=== PATIENT | female | born 1965 | race Caucasian/White ===

== ENCOUNTER → 2016-07-15 | Outpatient (REF) | payer OTHER ==
[~2016-07-15] MED LIST: CLARITIN D PO; IBUP400T OR; LEVO25TA2 OR; MULTIVIT PO; VICO5TAB OR
== END | disposition home or self-care (01) ==
LOC: M LAB REF 12:23
PROVIDERS: ATTEND Physician Assistant Medical
DX: N30.01 Acute cystitis with hematuria (principal)

== ENCOUNTER → 2016-12-24 | Outpatient (REF) | payer OTHER | LOC: M LAB REF 21:23 | PROVIDERS: ATTEND Physician Assistant | DX: N39.0 Urinary tract infection, site not specified (principal) ==

== ENCOUNTER → 2017-02-19 | Outpatient (CLI) | payer OTHER ==
--- NOTE | 2017-02-19 17:11 | REPMRS ---
Patient History The patient states she had a clinical breast exam in 01/2017. No known family history of cancer. Reconstructions of both breasts, December 2013. Taking estrogen for 4 years 6 months. Taking progesterone for 4 years 6 months. Digital Woman Screen Mammo: February 19, 2017 - Exam #: [id number] Bilateral CC and MLO view(s) were taken. Technologist: Lupe Minor, Technologist Prior study comparison: January 10, 2016, digital woman screen mammo performed at [facility]. December 12, 2014, digital woman screen mammo performed at [facility] to [facility]. FINDINGS: There are scattered fibroglandular densities. There has been no change in the appearance of the mammogram from the prior studies. There is a mild amount of residual fibroglandular tissue which is fairly symmetric. There is no interval development of dominant mass, architectural distortion, or clustered microcalcification suggestive of malignancy. ASSESSMENT: BI-RADS/ACR category 1 mammogram. Negative. Recommendation Routine screening mammogram in 1 year (for women over age 40). This mammogram was interpreted with the aid of an FDA-approved computer-aided dectection system. Electronically Signed By: Eddie Robin MD 02/19/17 [id number]
== END ==
LOC: M WHC 15:18
PROVIDERS: ATTEND Nurse Practitioner Family
DX: Z12.31 Encounter for screening mammogram for malignant neoplasm of breast (principal)

== ENCOUNTER → 2017-05-06 | Outpatient (REF) | payer OTHER ==
[2017-05-06 13:38] LABS: ANION GAP 6 MEQ/L (8-16); BLOOD UREA NITROGEN 14 MG/DL (7-18); CALCIUM LEVEL 9.4 MG/DL (8.5-10.1); CARBON DIOXIDE LEVEL 33 MEQ/L (21-32); CHLORIDE LEVEL 101 MEQ/L (98-107); CHOLESTEROL LEVEL 262 MG/DL (<200); CREATININE FOR GFR 0.87 MG/DL (0.55-1.02); GLOMERULAR FILTRATION RATE > 60.0 (>51); GLUCOSE, FASTING 91 MG/DL (70-105); POTASSIUM SERUM 4.9 MEQ/L (3.5-5.1); SODIUM LEVEL 140 MEQ/L (136-145); TRIGLYCERIDES LEVEL 231 MG/DL (<150)
== END ==
LOC: M LABDRWAD 12:16 → M LAB REF 12:16
PROVIDERS: ATTEND Internal Medicine
DX: Z00.01 Encounter for general adult medical examination with abnormal findings (principal); E78.00 Pure hypercholesterolemia, unspecified

== ENCOUNTER → 2017-07-07 | Outpatient (REF) | payer OTHER | LOC: M LAB REF 18:58 | DX: N30.01 Acute cystitis with hematuria (principal) ==

== ENCOUNTER → 2017-08-08 | Outpatient (REF) | payer OTHER | LOC: M LAB REF 17:17 | DX: N30.01 Acute cystitis with hematuria (principal) ==

== ENCOUNTER 2017-08-10 07:53 | Day surgery (SDC) | payer OTHER ==
[~2017-08-10 07:53] MED LIST changes: -CLARITIN D PO; -IBUP400T OR; -LEVO25TA2 OR; +LIDOCAINE 2% INJ 100 MG/5 ML SDV (FOR ANES.) As Ordered; -MULTIVIT PO; +PROPOFOL 200 MG/20 ML VIAL As Ordered; -VICO5TAB OR
[2017-08-10] MEDS: NS 1,000 ML IV (08:15)
== END 2017-08-10 10:20 | disposition home or self-care (01) ==
LOC: M OPP 07:53
DX: Z12.11 Encounter for screening for malignant neoplasm of colon (principal); K64.0 First degree hemorrhoids; R12 Heartburn; R13.10 Dysphagia, unspecified; K22.8 Other specified diseases of esophagus; K44.9 Diaphragmatic hernia without obstruction or gangrene; E03.9 Hypothyroidism, unspecified; K21.9 Gastro-esophageal reflux disease without esophagitis; R06.83 Snoring; Z79.899 Other long term (current) drug therapy
CPT/HCPCS: 45378

== ENCOUNTER → 2017-10-20 | Outpatient (REF) | payer OTHER | LOC: M LAB REF 12:41 | DX: N30.01 Acute cystitis with hematuria (principal) | CPT/HCPCS: 87186 ==

== ENCOUNTER → 2017-12-04 | Outpatient (REF) | payer OTHER | LOC: M LAB REF 12-08 12:34 | DX: N30.01 Acute cystitis with hematuria (principal) ==

== ENCOUNTER → 2018-05-07 | Outpatient (CLI) | payer OTHER ==
[2018-05-07 14:20] LABS: ANION GAP 7 MEQ/L (8-16); BLOOD UREA NITROGEN 17 MG/DL (7-18); CALCIUM LEVEL 8.8 MG/DL (8.5-10.1); CARBON DIOXIDE LEVEL 30 MEQ/L (21-32); CHLORIDE LEVEL 103 MEQ/L (98-107); CHOLESTEROL LEVEL 280 MG/DL (<200); CHOLESTEROL RISK RATIO 4.827 (<5); CREATININE FOR GFR 0.84 MG/DL (0.55-1.30); GLOMERULAR FILTRATION RATE > 60.0 (>51); GLUCOSE, FASTING 93 MG/DL (70-100); HDL CHOLESTEROL 58 MG/DL (>40); LDL CHOLESTEROL 174 MG/DL (<100); NON-HDL-C 222 MG/DL; POTASSIUM SERUM 4.4 MEQ/L (3.5-5.1); SODIUM LEVEL 140 MEQ/L (136-145); TRIGLYCERIDES LEVEL 239 MG/DL (<150)
== END ==
LOC: M ADAMS 09:45
DX: E78.00 Pure hypercholesterolemia, unspecified (principal); E03.9 Hypothyroidism, unspecified
CPT/HCPCS: 84443

== ENCOUNTER → 2018-05-18 | Outpatient (CLI) | payer OTHER ==
[~2018-05-18] MED LIST changes: +CLARITIN D PO; +ESOM1CAP5 PO; +ESTE1TAB5 PO; +IBUP400T OR; +LEVO25TA2 OR; +LEVO75TA4 PO; -LIDOCAINE 2% INJ 100 MG/5 ML SDV (FOR ANES.) As Ordered; +MULT1TAB10 PO; +MULTIVIT PO; -PROPOFOL 200 MG/20 ML VIAL As Ordered; +VICO5TAB OR
--- NOTE | 2018-05-18 10:29 | REPMRS ---
Patient History The patient states she had a clinical breast exam in 05/18 No known family history of cancer. Reconstructions of both breasts, December 2013. Taking estrogen for 5 years 6 months. Taking progesterone for 5 years 6 months. Digital Woman Screen Mammo: May 18, 2018 - Exam #: [id number] Bilateral CC and MLO view(s) were taken. Technologist: Aviva Cowart, Technologist Prior study comparison: February 19, 2017, digital woman screen mammo performed at [facility]. January 10, 2016, digital woman screen mammo performed at [facility]. December 12, 2014, digital woman screen mammo performed at [facility] to [facility]. FINDINGS: There are scattered fibroglandular densities. There is a moderate amount of residual fibroglandular tissue which is fairly symmetric. There is no interval development of dominant mass, architectural distortion, or clustered microcalcification typical of malignancy. There has been no change in the appearance of the mammogram from the prior studies. 3-D tomosynthesis shows no additional findings. Assessment: BI-RADS/ACR category 1 mammogram. Negative. Recommendation Routine screening mammogram of both breasts in 1 year (for women over age 40). This patient's Lifetime Breast Cancer RIsk is estimated at 7.5 %. This mammogram was interpreted with the aid of an FDA-approved computer-aided dectection system. Electronically Signed By: Kris Tubbs MD 05/18/18 [id number]
== END ==
LOC: M WHC 08:19
PROVIDERS: ATTEND Nurse Practitioner Family
DX: Z12.31 Encounter for screening mammogram for malignant neoplasm of breast (principal); Z92.23 Personal history of estrogen therapy; Z92.29 Personal history of other drug therapy; Z92.89 Personal history of other medical treatment

== ENCOUNTER → 2018-11-08 | Outpatient (REF) | payer OTHER ==
[2018-11-08 14:28] LABS: CHOLESTEROL RISK RATIO 2.822 (<5); THYROID STIMULATING HORMONE 0.605 uIU/ML (0.358-3.740)
== END ==
LOC: M LABDRWAD 12:25
PROVIDERS: ATTEND Nurse Practitioner Family
DX: E78.00 Pure hypercholesterolemia, unspecified (principal); K03.9 Disease of hard tissues of teeth, unspecified

== ENCOUNTER → 2019-02-25 | Outpatient (REF) | payer OTHER ==
[2019-02-25 17:02] LABS: BLOOD UREA NITROGEN 13 MG/DL (7-18); CALCIUM LEVEL 8.9 MG/DL (8.5-10.1); CARBON DIOXIDE LEVEL 29 MEQ/L (21-32); CHLORIDE LEVEL 106 MEQ/L (98-107); CHOLESTEROL LEVEL 249 MG/DL (<200); CREATININE FOR GFR 0.86 MG/DL (0.55-1.30); GLOMERULAR FILTRATION RATE > 60.0 (>51); GLUCOSE, FASTING 93 MG/DL (70-100); HDL CHOLESTEROL 73 MG/DL (>40); LDL CHOLESTEROL 156 MG/DL (<100); NON-HDL-C 176 MG/DL; POTASSIUM SERUM 4.9 MEQ/L (3.5-5.1); SODIUM LEVEL 141 MEQ/L (136-145); TRIGLYCERIDES LEVEL 98 MG/DL (<150)
== END ==
LOC: M LABDRWAD 12:51
PROVIDERS: ATTEND Internal Medicine
DX: Z00.00 Encounter for general adult medical examination without abnormal findings (principal); E78.00 Pure hypercholesterolemia, unspecified; E03.9 Hypothyroidism, unspecified

== ENCOUNTER → 2019-05-05 | Outpatient (REF) | payer OTHER ==
[2019-05-05 12:33] LABS: BLOOD UREA NITROGEN 15 MG/DL (7-18); CARBON DIOXIDE LEVEL 31 MEQ/L (21-32); CHLORIDE LEVEL 103 MEQ/L (98-107); GLOMERULAR FILTRATION RATE > 60.0 (>51); GLUCOSE, FASTING 88 MG/DL (70-100); POTASSIUM SERUM 4.6 MEQ/L (3.5-5.1); SODIUM LEVEL 141 MEQ/L (136-145)
[2019-05-05 12:34] LABS: CHOLESTEROL LEVEL 289 MG/DL (<200); CHOLESTEROL RISK RATIO 3.284 (<5); HDL CHOLESTEROL 88 MG/DL (>40); LDL CHOLESTEROL 178 MG/DL (<100); NON-HDL-C 201 MG/DL; TRIGLYCERIDES LEVEL 115 MG/DL (<150)
== END ==
LOC: M LABDRWAD 11:33
PROVIDERS: ATTEND Internal Medicine
DX: Z00.00 Encounter for general adult medical examination without abnormal findings (principal); E78.00 Pure hypercholesterolemia, unspecified; E03.9 Hypothyroidism, unspecified

== ENCOUNTER → 2019-05-19 | Outpatient (CLI) | payer OTHER ==
--- NOTE | 2019-05-19 09:29 | REPMRS ---
Patient History The patient states she had a clinical breast exam in 2018. No known family history of cancer. Reconstructions of both breasts, December 2013. Taking estrogen for 9 years. Took progesterone for 5 years 6 months. Digital Woman Screen Mammo: May 19, 2019 - Exam #: [id number] Bilateral CC and MLO view(s) were taken. Technologist: Denae Arzate, Technologist Prior study comparison: May 18, 2018, bilateral digital woman screen mammo performed at [facility]. February 19, 2017, digital woman screen mammo performed at [facility]. January 10, 2016, digital woman screen mammo performed at [facility]. FINDINGS: The breast tissue is heterogeneously dense. This may lower the sensitivity of mammography. There is a moderate amount of heterogeneously dense fibroglandular tissue which is fairly symmetric. There is no interval development of dominant mass, architectural distortion, or grouped microcalcification typical of malignancy. There has been no change in the appearance of the mammogram from the prior studies. 3-D tomosynthesis shows no additional findings. Assessment: BI-RADS/ACR category 1 mammogram. Negative Mammogram. Recommendation Routine screening mammogram of both breasts in 1 year (for women over age 40). This patient's Lifetime Breast Cancer RIsk is estimated at 7.4 %. This mammogram was interpreted with the aid of an FDA-approved computer-aided dectection system. Electronically Signed By: Kris Tubbs MD 05/19/19 [id number]
== END ==
LOC: M WHC 08:02
PROVIDERS: ATTEND Nurse Practitioner Family
DX: Z12.31 Encounter for screening mammogram for malignant neoplasm of breast (principal)

== ENCOUNTER → 2019-08-01 | Outpatient (REF) | payer OTHER ==
[2019-08-01 14:29] LABS: ALBUMIN 4.1 GM/DL (3.2-5.2); ALT/SGPT 41 U/L (12-78); BILIRUBIN,TOTAL 0.5 MG/DL (0.2-1.0); BLOOD UREA NITROGEN 11 MG/DL (7-18); CALCIUM LEVEL 9.1 MG/DL (8.5-10.1); CARBON DIOXIDE LEVEL 31 MEQ/L (21-32); CHLORIDE LEVEL 103 MEQ/L (98-107); CHOLESTEROL LEVEL 232 MG/DL (<200); CHOLESTEROL RISK RATIO 3.314 (<5); GLOMERULAR FILTRATION RATE > 60.0 (>51); GLUCOSE, FASTING 88 MG/DL (70-100); HDL CHOLESTEROL 70 MG/DL (>40); LDL CHOLESTEROL 119 MG/DL (<100); NON-HDL-C 162 MG/DL; POTASSIUM SERUM 4.6 MEQ/L (3.5-5.1); SODIUM LEVEL 139 MEQ/L (136-145); TOTAL PROTEIN 7.6 GM/DL (6.4-8.2); TRIGLYCERIDES LEVEL 213 MG/DL (<150)
== END ==
LOC: M LAB REF 12:54
PROVIDERS: ATTEND Internal Medicine
DX: Z00.00 Encounter for general adult medical examination without abnormal findings (principal); E78.00 Pure hypercholesterolemia, unspecified

== ENCOUNTER → 2019-11-10 | Outpatient (REF) | payer OTHER ==
[2019-11-10 14:00] LABS: BLOOD UREA NITROGEN 15 MG/DL (7-18); CREATININE FOR GFR 0.83 MG/DL (0.55-1.30); GLUCOSE, FASTING 86 MG/DL (70-100)
[2019-11-10 14:01] LABS: ALBUMIN 3.7 GM/DL (3.2-5.2); ALT/SGPT 42 U/L (12-78); BILIRUBIN,TOTAL 0.4 MG/DL (0.2-1.0); CALCIUM LEVEL 8.3 MG/DL (8.5-10.1); CARBON DIOXIDE LEVEL 30 MEQ/L (21-32); CHLORIDE LEVEL 108 MEQ/L (98-107); CHOLESTEROL LEVEL 174 MG/DL (<200); CHOLESTEROL RISK RATIO 2.259 (<5); GLOMERULAR FILTRATION RATE > 60.0 (>51); HDL CHOLESTEROL 77 MG/DL (>40); LDL CHOLESTEROL 81 MG/DL (<100); NON-HDL-C 97 MG/DL; POTASSIUM SERUM 4.7 MEQ/L (3.5-5.1); SODIUM LEVEL 142 MEQ/L (136-145); TOTAL PROTEIN 6.9 GM/DL (6.4-8.2); TRIGLYCERIDES LEVEL 79 MG/DL (<150)
[2019-11-11 11:58] LABS: TOTAL 25(OH) VITAMIN D 32.5 NG/ML (30.0-100.0)
== END ==
LOC: M LABDRWAD 12:52
PROVIDERS: ATTEND Nurse Practitioner Family
DX: Z00.00 Encounter for general adult medical examination without abnormal findings (principal); E78.00 Pure hypercholesterolemia, unspecified; E83.51 Hypocalcemia

== ENCOUNTER → 2020-05-16 | Outpatient (REF) | payer OTHER ==
[2020-05-16 13:46] LABS: ALBUMIN 3.7 GM/DL (3.2-5.2); ALT/SGPT 35 U/L (12-78); BILIRUBIN,TOTAL 0.4 MG/DL (0.2-1.0); BLOOD UREA NITROGEN 16 MG/DL (7-18); CALCIUM LEVEL 8.3 MG/DL (8.5-10.1); CARBON DIOXIDE LEVEL 30 MEQ/L (21-32); CHLORIDE LEVEL 103 MEQ/L (98-107); CHOLESTEROL LEVEL 195 MG/DL (<200); CREATININE FOR GFR 0.86 MG/DL (0.55-1.30); GLOMERULAR FILTRATION RATE > 60.0 (>51); GLUCOSE, FASTING 95 MG/DL (70-100); HDL CHOLESTEROL 78 MG/DL (>40); LDL CHOLESTEROL 97 MG/DL (<100); NON-HDL-C 117 MG/DL; POTASSIUM SERUM 4.8 MEQ/L (3.5-5.1); SODIUM LEVEL 140 MEQ/L (136-145); THYROID STIMULATING HORMONE 0.882 uIU/ML (0.358-3.740); TOTAL 25(OH) VITAMIN D 31.2 NG/ML (30.0-100.0); TRIGLYCERIDES LEVEL 99 MG/DL (<150)
== END ==
LOC: M LAB REF 12:22 → M LABDRWAD 12:22
PROVIDERS: ATTEND Internal Medicine
DX: E78.00 Pure hypercholesterolemia, unspecified (principal); E03.9 Hypothyroidism, unspecified; E83.51 Hypocalcemia

== ENCOUNTER → 2020-06-06 | Outpatient (CLI) | payer OTHER ==
--- NOTE | 2020-06-06 16:00 | REPMRS ---
Patient History The patient states she had a clinical breast exam in June.No known family history of cancer. Reconstructions of both breasts, December 2013. Taking estrogen for 9 years. Took progesterone for 5 years 6 months. 3D TOMOSYNTHESIS WAS PERFORMED. [facility] Volpara breast density b. Digital Woman Screen Mammo: June 06, 2020 - Exam #: [id number] Bilateral CC and MLO view(s) were taken. Technologist: Amarilys Rodriguez, Technologist Prior study comparison: May 19, 2019, bilateral digital woman screen mammo performed at [facility]. May 18, 2018, bilateral digital woman screen mammo performed at [facility]. FINDINGS: There are scattered fibroglandular densities. There has been no change in the appearance of the mammogram from the prior studies. There is a mild amount of residual fibroglandular tissue which is fairly symmetric. There is no interval development of dominant mass, architectural distortion, or clustered microcalcification suggestive of malignancy. Assessment: BI-RADS/ACR category 1 mammogram. Negative Mammogram. Recommendation Routine screening mammogram in 1 year (for women over age 40). This mammogram was interpreted with the aid of an FDA-approved computer-aided dectection system. Electronically Signed By: Eddie Robin MD 06/06/20 [id number]
== END ==
LOC: M WHC 15:29
PROVIDERS: ATTEND Nurse Practitioner Family
DX: Z12.31 Encounter for screening mammogram for malignant neoplasm of breast (principal)

== ENCOUNTER → 2020-11-20 | Outpatient (REF) | payer OTHER ==
[2020-11-20 12:53] LABS: HEMATOCRIT 43.9 % (36.0-47.0); HEMOGLOBIN 14.4 g/dl (12.0-15.5); MEAN CORPUSCULAR HEMOGLOBIN 31.3 pg (27.0-33.0); MEAN CORPUSCULAR HGB CONC 32.8 g/dl (32.0-36.5); MEAN CORPUSCULAR VOLUME 95.4 fl (80.0-96.0); PLATELET COUNT, AUTOMATED 216 10^3/uL (150-450); WHITE BLOOD COUNT 7.4 10^3/uL (4.0-10.0)
[2020-11-20 13:23] LABS: CHOLESTEROL RISK RATIO 2.224 (<5); THYROID STIMULATING HORMONE 1.58 uIU/ML (0.358-3.740)
[2020-11-20 13:35] LABS: ATYPICAL LYMPH 8 % (0-5); EOSINOPHILS 1 % (0-3); LYMPHOCYTES 28 % (16-44); MONOCYTES 4 % (0-5); NEUTROPHILS 59 % (28-66)
[2020-11-20 13:36] LABS: PLATELET ESTIMATE NORMAL (NORMAL)
== END ==
LOC: M LAB REF 12:17 → M LABDRWAD 12:17
PROVIDERS: ATTEND Internal Medicine
DX: Z00.00 Encounter for general adult medical examination without abnormal findings (principal); E03.9 Hypothyroidism, unspecified; E78.00 Pure hypercholesterolemia, unspecified

== ENCOUNTER → 2021-07-10 | Outpatient (CLI) | payer OTHER | LOC: M WHC 16:27 | PROVIDERS: ATTEND Obstetrics & Gynecology | DX: Z53.9 Procedure and treatment not carried out, unspecified reason (principal) ==

== ENCOUNTER → 2021-07-10 | Outpatient (CLI) | payer OTHER | LOC: M WHC 14:38 | PROVIDERS: ATTEND Obstetrics & Gynecology | DX: Z12.31 Encounter for screening mammogram for malignant neoplasm of breast (principal) ==

== ENCOUNTER → 2022-04-09 | Outpatient (CLI) | payer OTHER | LOC: M PLALAB 11:08 | PROVIDERS: ATTEND Physician Assistant | DX: M25.532 Pain in left wrist (principal) ==

== ENCOUNTER → 2022-05-09 | Outpatient (REF) | payer OTHER ==
[2022-05-09 13:35] LABS: C REACTIVE PROTEIN QUANTITATIV 0.8 MG/DL (<1.0)
[2022-05-09 13:36] LABS: RHEUMATOID FACTOR QUANT 5.5 IU/ML (<14)
[2022-05-10 13:08] LABS: ANTINUCLEAR ANTIBODIES DIRECT Negative (Negative)
== END ==
LOC: M LAB REF 12:19
PROVIDERS: ATTEND Registered Nurse
DX: M25.532 Pain in left wrist (principal)

== ENCOUNTER → 2022-08-04 | Outpatient (CLI) | payer OTHER | LOC: M WHC 11:21 | PROVIDERS: ATTEND Obstetrics & Gynecology | DX: Z12.31 Encounter for screening mammogram for malignant neoplasm of breast (principal) ==

== ENCOUNTER 2022-10-02 09:11 | Emergency (ER) | payer OTHER ==
[~2022-10-02] VITALS: Ht 162.6 cm; Wt 74.2 kg
[2022-10-02] MEDS ORDERED: ESTR0.1C5 (09:19)
[2022-10-02] MEDS ORDERED: ATOR1TAB19 PO (09:19)
[2022-10-02 10:35] LABS: BASO # 0.1 10^3/uL (0.0-0.2); BASO % 0.4 % (0.0-1.0); EOS # 0.1 10^3/uL (0.0-0.5); EOS % 0.4 % (0.0-3.0); HEMATOCRIT 43.5 % (36.0-47.0); LYMPH # 1.1 10^3/uL (1.5-5.0); LYMPH % 6.7 % (24.0-44.0); MEAN CORPUSCULAR HEMOGLOBIN 30.7 pg (27.0-33.0); MEAN CORPUSCULAR HGB CONC 34.5 g/dl (32.0-36.5); MONO % 9.4 % (2.0-8.0); NEUTROPHILS # 13.6 10^3/uL (1.5-8.5); NEUTROPHILS % 82.7 % (36.0-66.0); PLATELET COUNT, AUTOMATED 264 10^3/uL (150-450); RED BLOOD COUNT 4.89 10^6/uL (4.00-5.40); WHITE BLOOD COUNT 16.5 10^3/uL (4.0-10.0)
[2022-10-02 10:57] LABS: LIPASE 23 U/L (12-53)
[2022-10-02 10:59] LABS: ALBUMIN 3.7 G/DL (3.2-5.2); ALKALINE PHOSPHATASE 185 U/L (46-116); ALT/SGPT 38 U/L (7.0-40); AST/SGOT 33 U/L (<34); BILIRUBIN,DIRECT 0.2 MG/DL (<0.4); BILIRUBIN,TOTAL 0.6 MG/DL (0.3-1.2); BLOOD UREA NITROGEN 14 MG/DL (9-23); CALCIUM LEVEL 9.6 MG/DL (8.5-10.1); CARBON DIOXIDE LEVEL 30 MMOL/L (20-31); CHLORIDE LEVEL 95 MMOL/L (98-107); CREATININE FOR GFR 0.79 MG/DL (0.55-1.30); GLOMERULAR FILTRATION RATE > 60.0 (>51); GLUCOSE, FASTING 110 MG/DL (60-100); POTASSIUM SERUM 4.6 MMOL/L (3.5-5.1); SODIUM LEVEL 135 MMOL/L (136-145); TOTAL PROTEIN 7.3 G/DL (5.7-8.2)
[2022-10-02] MEDS ORDERED: NS 1,000 ML IV ONE (11:05)
[2022-10-02] MEDS ORDERED: MORPHINE 2 MG/ML 1ML VIAL IV ONE (11:05)
[2022-10-02] MEDS ORDERED: ONDANSETRON 4MG 2ML VIAL IV ONE (11:05)
[2022-10-02 11:19] LABS: MONO # 1.6 10^3/uL (0.0-0.8)
[2022-10-02 12:15] LABS: APPEARANCE, URINE HAZY (CLEAR); BACTERIA, URINE AUTO 1+ (NEGATIVE); BILIRUBIN, URINE AUTO NEGATIVE (NEGATIVE); BLOOD, URINE BLOOD 1+ (NEGATIVE); COLOR, URINE AMBER (YELLOW); GLUCOSE, URINE (UA) AUTO NEGATIVE (NEGATIVE); KETONE, URINE AUTO 2+ mg/dL (NEGATIVE); LEUKOCYTE ESTERASE, URINE AUTO NEGATIVE (NEGATIVE); MUCUS, URINE SMALL (NEGATIVE); NITRITE, URINE AUTO NEGATIVE (NEGATIVE); PROTEIN, URINE AUTO 2+ mg/dL (NEGATIVE); RBC, URINE AUTO 52 /HPF (0-3); SQUAMOUS EPITHELIAL CELL UR AU 0 /HPF (0-6); WBC, URINE AUTO 1 /HPF (0-3)
[2022-10-02] MEDS ORDERED: KETOROLAC 30 MG/ML 1ML VIAL IV ONE (12:40)
[2022-10-02] MEDS ORDERED: PIPERACILLIN/TAZOBACTAM SOD 3.375 GM in D5W MINI-BAG PLUS 50 ML IV ONE (12:50)
[2022-10-02 13:41] VITALS: BP 153/72
[2022-10-02 14:29] LABS: RSV AMPLIFICATION NEGATIVE (NEGATIVE)
[2022-10-02] MEDS ORDERED: ONDA4TAB6 PO (14:47)
[2022-10-02] MEDS ORDERED: AMOX875T2 PO (14:47)
[2022-10-02] MEDS ORDERED: KETO10TAB PO (14:47)
[2022-10-03] MEDS ORDERED: AMOX875T2 PO (21:01)
[2022-10-03] MEDS ORDERED: KETO10TAB PO (21:01)
[2022-10-03] MEDS ORDERED: ONDA4TAB6 PO (21:01)
== END 2022-10-02 15:07 | disposition home or self-care (01) ==
LOC: M ED 09:11
DX: K80.20 Calculus of gallbladder without cholecystitis without obstruction (principal); E03.9 Hypothyroidism, unspecified; K21.9 Gastro-esophageal reflux disease without esophagitis; F10.10 Alcohol abuse, uncomplicated; Z79.2 Long term (current) use of antibiotics; Z79.810 Long term (current) use of selective estrogen receptor modulators (SERMs); Z79.02 Long term (current) use of antithrombotics/antiplatelets; Z79.899 Other long term (current) drug therapy
CPT/HCPCS: 76705; 80048; 80076; 81001; 83690; 85025; 87631; 96365; 96375; 99284; J1885; J2405; J2543

== ENCOUNTER 2022-10-03 18:44 | Emergency (ER) | payer OTHER ==
[~2022-10-03] VITALS: Ht 162.6 cm; Wt 75.1 kg
[~2022-10-03 18:44] MED LIST changes: +AMOX875T2 PO; +ATOR1TAB19 PO; +ESTR0.1C5; +KETO10TAB PO; +ONDA4TAB6 PO
[2022-10-03] MEDS ORDERED: NS 500 ML IV ONE (20:15)
[2022-10-03] MEDS ORDERED: MORPHINE 4 MG/ML 1ML VIAL IV ONE (20:30)
[2022-10-03] MEDS ORDERED: NS 1,000 ML IV ONE (20:30)
[2022-10-03 20:41] LABS: BASO # 0.1 10^3/uL (0.0-0.2); BASO % 0.3 % (0.0-1.0); EOS # 0.1 10^3/uL (0.0-0.5); EOS % 0.5 % (0.0-3.0); HEMATOCRIT 38.1 % (36.0-47.0); HEMOGLOBIN 13.1 g/dl (12.0-15.5); LYMPH # 1.1 10^3/uL (1.5-5.0); LYMPH % 5.5 % (24.0-44.0); MEAN CORPUSCULAR HEMOGLOBIN 30.4 pg (27.0-33.0); MEAN CORPUSCULAR HGB CONC 34.4 g/dl (32.0-36.5); MEAN CORPUSCULAR VOLUME 88.4 fl (80.0-96.0); MONO % 11.7 % (2.0-8.0); NEUTROPHILS # 16.1 10^3/uL (1.5-8.5); NEUTROPHILS % 81.4 % (36.0-66.0); PLATELET COUNT, AUTOMATED 258 10^3/uL (150-450); RED BLOOD COUNT 4.31 10^6/uL (4.00-5.40); WHITE BLOOD COUNT 19.7 10^3/uL (4.0-10.0)
[2022-10-03 20:44] LABS: APPEARANCE, URINE HAZY (CLEAR); BACTERIA, URINE AUTO NEGATIVE (NEGATIVE); BILIRUBIN, URINE AUTO 1+ (NEGATIVE); BLOOD, URINE BLOOD 2+ (NEGATIVE); COLOR, URINE AMBER (YELLOW); GLUCOSE, URINE (UA) AUTO NEGATIVE (NEGATIVE); KETONE, URINE AUTO 1+ mg/dL (NEGATIVE); LEUKOCYTE ESTERASE, URINE AUTO NEGATIVE (NEGATIVE); MUCUS, URINE SMALL (NEGATIVE); NITRITE, URINE AUTO NEGATIVE (NEGATIVE); PROTEIN, URINE AUTO 2+ mg/dL (NEGATIVE); RBC, URINE AUTO 62 /HPF (0-3); SPECIFIC GRAVITY URINE AUTO 1.026 (1.002-1.035); SQUAMOUS EPITHELIAL CELL UR AU 0 /HPF (0-6); WBC, URINE AUTO 2 /HPF (0-3)
[2022-10-03] MEDS ORDERED: ONDA4TAB6 PO (21:01)
[2022-10-03] MEDS ORDERED: KETO10TAB PO (21:01)
[2022-10-03] MEDS ORDERED: AMOX875T2 PO (21:01)
[2022-10-03 21:04] LABS: LIPASE 24 U/L (12-53)
[2022-10-03] MEDS ORDERED: HOME MED LIST COMPLETE! XX SCH (21:05)
[2022-10-03 21:08] LABS: ALBUMIN 2.9 G/DL (3.2-5.2); ALKALINE PHOSPHATASE 339 U/L (46-116); ALT/SGPT 131 U/L (7.0-40); AST/SGOT 130 U/L (<34); BILIRUBIN,DIRECT 1.2 MG/DL (<0.4); BILIRUBIN,TOTAL 1.9 MG/DL (0.3-1.2); BLOOD UREA NITROGEN 16 MG/DL (9-23); CALCIUM LEVEL 8.8 MG/DL (8.5-10.1); CARBON DIOXIDE LEVEL 28 MMOL/L (20-31); CHLORIDE LEVEL 94 MMOL/L (98-107); CREATININE FOR GFR 0.86 MG/DL (0.55-1.30); GLOMERULAR FILTRATION RATE > 60.0 (>51); GLUCOSE, FASTING 110 MG/DL (60-100); POTASSIUM SERUM 4.5 MMOL/L (3.5-5.1); SODIUM LEVEL 131 MMOL/L (136-145); TOTAL PROTEIN 6.6 G/DL (5.7-8.2)
[2022-10-03 21:19] LABS: MONO # 2.3 10^3/uL (0.0-0.8)
[2022-10-03] MEDS ORDERED: PIPERACILLIN/TAZOBACTAM SOD 3.375 GM in D5W MINI-BAG PLUS 50 ML IV ONE (21:45)
[2022-10-03 22:40] LABS: RSV AMPLIFICATION NEGATIVE (NEGATIVE)
[2022-10-04 00:17] VITALS: BP 124/77
== END 2022-10-04 00:33 | disposition short-term general hospital (02) ==
LOC: M ED 18:44
DX: K80.40 Calculus of bile duct with cholecystitis, unspecified, without obstruction (principal); K21.9 Gastro-esophageal reflux disease without esophagitis; E03.9 Hypothyroidism, unspecified; Z87.442 Personal history of urinary calculi; Z79.2 Long term (current) use of antibiotics; Z79.83 Long term (current) use of bisphosphonates; Z79.899 Other long term (current) drug therapy
CPT/HCPCS: 76700; 80048; 80076; 81001; 83605; 83690; 85025; 87631; 96365; 96366; 96375; 99284; J2543

== ENCOUNTER → 2022-11-21 | Outpatient (REF) | payer OTHER | LOC: M LAB REF 12:28 | PROVIDERS: ATTEND Physician Assistant Medical | DX: M79.10 Myalgia, unspecified site (principal) ==

== ENCOUNTER → 2023-08-20 | Outpatient (CLI) | payer OTHER ==
[~2023-08-20] MED LIST changes: -ESTE1TAB5 PO; +ESTETAB PO
== END ==
LOC: M WHC 11:19
PROVIDERS: ATTEND Obstetrics & Gynecology
DX: Z12.31 Encounter for screening mammogram for malignant neoplasm of breast (principal)

== ENCOUNTER → 2024-03-16 | Outpatient (REF) | payer OTHER ==
[~2024-03-16] MED LIST changes: +ESOM1CAP20 PO; -ESOM1CAP5 PO; +ONDA-282 PO; -ONDA4TAB6 PO
[2024-03-16 19:44] LABS: RHEUMATOID FACTOR QUANT 8.5 IU/ML (<14)
[2024-03-16 19:47] LABS: URIC ACID 4.4 MG/DL (3.1-7.8)
== END ==
LOC: M LAB REF 16:40
PROVIDERS: ATTEND Physician Assistant Medical
DX: M79.10 Myalgia, unspecified site (principal)

== ENCOUNTER → 2024-05-23 | Outpatient (REF) | payer OTHER ==
[2024-05-24 13:47] LABS: PERCENT SATURATION 4.7 % (13.2-45.0)
[2024-05-24 13:50] LABS: FERRITIN 6.4 NG/ML (7.3-270.7)
== END ==
LOC: M LAB REF 12:58
PROVIDERS: ATTEND Physician Assistant Medical
DX: R53.83 Other fatigue (principal); D64.9 Anemia, unspecified

== ENCOUNTER → 2024-07-11 | Outpatient (REF) | payer OTHER ==
[2024-07-11 13:09] LABS: FERRITIN 19.6 NG/ML (7.3-270.7)
[2024-07-11 13:11] LABS: PERCENT SATURATION 28.5 % (13.2-45.0)
== END ==
LOC: M LAB REF 11:47
PROVIDERS: ATTEND Physician Assistant Medical
DX: D64.9 Anemia, unspecified (principal)

== ENCOUNTER → 2024-08-31 | Outpatient (CLI) | payer OTHER | LOC: M WHC 14:30 | PROVIDERS: ATTEND Nurse Practitioner Family | DX: Z12.31 Encounter for screening mammogram for malignant neoplasm of breast (principal) ==